=== PATIENT | female | born 1975 | race Caucasian/White ===

== ENCOUNTER 2016-09-20 14:31 | Emergency (ER) | payer OTHER, MEDICAID ==
[2016-09-20] MEDS ORDERED: NS 1,000 ML IV ONE (14:44)
[2016-09-20 14:53] VITALS: BP 127/78; PULSE 72; RESP 18; TEMP 97; O2SAT 97
--- NOTE | 2016-09-20 15:38 | UCPHY ---
H & P Time Seen by Provider: 09/20/16 15:13 Patient Type: Established HPI/ROS: 41-year-old female presents complaining of abdominal pain radiating to her left shoulder for 7 days she also states she has had a fever as high as 97. She states she has had GI problems for many many years. She does not currently have a regular primary care physician however she does state that she is scheduled to see a home manager tomorrow on September 21, 2016. She denies diarrhea she denies constipation No nausea or vomiting today She is concerned that her low temperature often ranging between 95-97 at home may be a sign of SIRS. She has no recent history of acute infections or signs of sepsis as far she knows. Review of systems As per HPI General no fever no chills no weakness HEENT no eye pain no eye discharge. No eye redness, no sore throat Respiratory no cough, no shortness of breath Cardiac no chest pain, no peripheral edema GI positive abdominal pain, no diarrhea, no constipation, no nausea, no vomiting no flank pain, no hematuria, no dysuria Musculoskeletal no myalgias, no joint pain Heme no easy bruising, no easy bleeding Endo no polyuria, no polydipsia Skin no rashes, no pruritus Neuro no syncope, no dizziness, no headaches Psych is no suicidal ideation, no homicidal ideation Past Medical/Surgical History: ? Irritable bowel syndrome Social History: Denies alcohol or drug use Smoking Status: Never smoked Physical Exam: 41-year-old female alert and oriented HEENT atraumatic normocephalic, extraocular muscles intact, anicteric Oropharynx negative for erythema negative exudate, tolerating her own secretions Neck supple no meningismus Lungs clear to auscultation bilaterally Heart regular rate and rhythm without murmur rub or gallop Abdomen nondistended normoactive bowel sounds soft nontender Back no CVA tenderness, no step-offs, no spinal tenderness Extremities no cyanosis clubbing or edema Neuro alert and oriented, no focal deficits Constitutional: Initial Vital Signs Temperature (C) 36.1 C 09/20/16 14:50 Heart Rate 72 09/20/16 14:50 Respiratory Rate 18 09/20/16 14:50 Blood Pressure 127/78 H 09/20/16 14:50 O2 Sat (%) 97 09/20/16 14:50 O2 Delivery Mode Room Air Allergies/Adverse Reactions: diphenhydramine HCl [From Benadryl] Allergy (Verified 10/15/15 08:16) latex [Latex] Allergy (Verified 10/15/15 08:16) promethazine HCl [From Phenergan] Allergy (Verified 10/15/15 08:16) iv contrast Allergy (Uncoded 10/15/15 08:16) Home Medications: Medication Instructions Recorded NK [No Known Home Meds] 08/22/15 Medical Decision Making ED Course/Re-evaluation: Patient seen and evaluated for abdominal pain radiating to her left shoulder of 1 weeks duration though she is currently pain free she feels this may be a result of having drank apple cider vinegar with an apple last night. Her physical exam is completely normal, she appears well. Labs CBC normal white blood cell count no evidence of anemia CMP liver function normal, renal function normal Lipase normal Erythrocyte sedimentation rate normal TSH normal Impression Abdominal pain unknown etiology Plan Follow-up with a primary care physician Keep her appointment with GI as scheduled for tomorrow September 21, 2016 - Data Points Laboratory Results: Laboratory Results 09/20/16 15:41 09/20/16 15:41 09/20/16 09/20/16 16:00 15:41 WBC 5.75 10^3/uL (3.80-9.50) RBC 4.03 L 10^6/uL (4.18-5.33) Hgb 13.0 g/dL (12.6-16.3) Hct 37.4 L % (38.0-47.0) MCV 92.8 fL (81.5-99.8) MCH 32.3 pg (27.9-34.1) MCHC 34.8 g/dL (32.4-36.7) RDW 11.9 % (11.5-15.2) Plt Count 216 10^3/uL (150-400) MPV 9.9 fL (8.7-11.7) Neut % (Auto) 67.9 % (39.3-74.2) Lymph % (Auto) 23.0 % (15.0-45.0) [place] % (Auto) 7.8 % (4.5-13.0) Eos % (Auto) 0.5 L % (0.6-7.6) Baso % (Auto) 0.5 % (0.3-1.7) Nucleat RBC Rel Count 0.0 % (0.0-0.2) Absolute Neuts (auto) 3.90 10^3/uL (1.70-6.50) Absolute Lymphs (auto) 1.32 10^3/uL (1.00-3.00) Absolute Monos (auto) 0.45 10^3/uL (0.30-0.80) Absolute Eos (auto) 0.03 10^3/uL (0.03-0.40) Absolute Basos (auto) 0.03 10^3/uL (0.02-0.10) Absolute Nucleated RBC 0.00 10^3/uL (0-0.01) Immature Gran % 0.3 % (0.0-1.1) Immature Gran # 0.02 10^3/uL (0.00-0.10) ESR 8 MM/HR (0-20) Sodium 135 mEq/L (134-144) Potassium 4.1 mEq/L (3.5-5.2) Chloride 105 mEq/L (97-110) Carbon Dioxide 23 mEq/l (22-31) Anion Gap 7 mEq/L (8-16) BUN 12 mg/dL (7-23) Creatinine 0.8 mg/dL (0.6-1.0) Estimated GFR > 60 Glucose 92 mg/dL (70-100) Calcium 9.0 mg/dL (8.5-10.4) Magnesium 1.9 mg/dL (1.6-2.3) Total Bilirubin 0.6 mg/dL (0.1-1.4) AST 21 IU/L (14-46) ALT 33 IU/L (9-52) Alkaline Phosphatase 51 IU/L (38-126) Total Protein 6.5 g/dL (6.3-8.2) Albumin 3.7 g/dL (3.5-5.0) Lipase 105.0 IU/L (23-300) TSH 3.770 uIU/mL (0.465-4.680) Urine Color YELLOW Urine Appearance CLEAR Urine pH 8.0 H (5.0-7.5) Ur Specific [place] 1.010 (1.002-1.030) Urine Protein NEGATIVE (NEGATIVE) Urine Ketones NEGATIVE (NEGATIVE) Urine Blood NEGATIVE (NEGATIVE) Urine Nitrate NEGATIVE (NEGATIVE) Urine Bilirubin NEGATIVE (NEGATIVE) Urine Urobilinogen 0.2 EU (0.2-1.0) Ur Leukocyte Esterase NEGATIVE (NEGATIVE) Ur Culture Indicated? NOT INDICATED (NI) Urine Glucose NEGATIVE (NEGATIVE) Medications Given: Discontinued Medications Sodium Chloride (Ns) 1,000 mls @ 0 mls/hr IV ONCE ONE PRN Reason: Wide Open Stop: 09/20/16 14:45 Last Admin: 09/20/16 15:48 Dose: Not Given Departure - Departure Disposition: Home, Routine, Self-Care Clinical Impression: Abdominal pain Condition: Good Instructions: Abdominal Pain (ED) Additional Instructions: KEEP YOUR APPOINTMENTS PLANNED Referrals: NONE *PRIMARY CARE P,. [Primary Care Provider] - As per Instructions [facility] [Provider Group] - As per Instructions - PQRS PQRS Measurement: NA
[2016-09-20 15:51] LABS: % IMMATURE GRANULYOCYTES 0.3 % (0.0-1.1); ABSOLUTE IMMATURE GRANULOCYTES 0.02 10^3/uL (0.00-0.10); ADD DIFF? NO; ADD MORPH? NO; ADD SCAN? NO; ATYPICAL LYMPHOCYTE FLAG 10 (0-99); FRAGMENT RBC FLAG 0 (0-99); HEMATOCRIT 37.4 % (38.0-47.0); LEFT SHIFT FLG 0 (0-99); LIPEMIA HEMOLYSIS FLAG 90 (0-99); MEAN CELL HEMOGLOBIN 32.3 pg (27.9-34.1); MEAN CELL HEMOGLOBIN CONCENTR. 34.8 g/dL (32.4-36.7); MEAN CELL VOLUME 92.8 fL (81.5-99.8); MEAN PLATELET VOLUME 9.9 fL (8.7-11.7); PLATELET CLUMPS FLAG 0 (0-99); PLATELET COUNT 216 10^3/uL (150-400); RED BLOOD CELL COUNT 4.03 10^6/uL (4.18-5.33); RED CELL DISTRIBUTION WIDTH 11.9 % (11.5-15.2)
[2016-09-20 16:09] LABS: ALANINE AMINOTRANSFERASE 33 IU/L (9-52); ALBUMIN 3.7 g/dL (3.5-5.0); ALKALINE PHOSPHATASE 51 IU/L (38-126); ANION GAP 7 mEq/L (8-16); ASPARTATE AMINOTRANSFERASE 21 IU/L (14-46); BILIRUBIN,TOTAL 0.6 mg/dL (0.1-1.4); CARBON DIOXIDE 23 mEq/l (22-31); CHLORIDE 105 mEq/L (97-110); CREATININE 0.8 mg/dL (0.6-1.0); GLOMERULAR FILTRATION RATE > 60; GLUCOSE 92 mg/dL (70-100); MAGNESIUM 1.9 mg/dL (1.6-2.3); POTASSIUM 4.1 mEq/L (3.5-5.2); SODIUM 135 mEq/L (134-144); TOTAL PROTEIN 6.5 g/dL (6.3-8.2)
[2016-09-20 16:09] LABS: COLOR YELLOW; LEUKOCYTE ESTERASE,URINE NEGATIVE (NEGATIVE); NITRITE,URINE NEGATIVE (NEGATIVE)
[2016-09-20 16:14] LABS: SEDIMENTATION RATE 8 MM/HR (0-20)
== END 2016-09-20 17:07 | disposition home or self-care (01) ==
LOC: CED 14:31
DX: R10.9 Unspecified abdominal pain (principal)
CPT/HCPCS: 80053-PO; 81003-PO; 83690-PO; 83735-PO; 84443-PO; 85025-PO; 85652-PO; 99214-PO; G0463-PO

== ENCOUNTER → 2016-10-04 | Outpatient (CLI) | payer OTHER, MEDICAID | LOC: CIMAGING 07:54 | PROVIDERS: ATTEND Physician Assistant | DX: R10.9 Unspecified abdominal pain (principal) | CPT/HCPCS: 76700-PO ==

== ENCOUNTER 2016-12-18 11:30 | Emergency (ER) | payer OTHER, MEDICAID ==
--- NOTE | 2016-12-18 11:34 | EDPHY ---
H & P HPI/ROS: CHIEF COMPLAINT: Abdominal pain. HISTORY OF PRESENT ILLNESS: The patient is a 41-year-old female who presents with epigastric pain that has been present for several days, but more noticeable yesterday. The pain is constant but worse after eating. Today after eating the pain became severe and radiated to her back. She became diaphoretic and had elevated blood pressure. The patient had a similar episode of pain a few years ago after taking Trileptal. She discontinued this medication. The patient was seen here 09/20/16 with similar complaints. At that time her lab work was normal. She followed up with a hot wort settler who found she had a normal stool study and recommended endoscopy. The patient feels too weak to have an endoscopy. She complains of diffuse myalgias and states "I think I have acute pancreatitis". She has been having soft stools that are dark green colored for 3 days. No changes in diet. She denies fever. No urinary complaints. She is scheduled to see her PCP later this week. REVIEW OF SYSTEMS: A ten point review of systems was performed and is negative with the exception of the items mentioned in the HPI. 2 weeks ago "blacked out" while sitting in the car. Source: Patient Exam Limitations: No limitations - Personal History Tetanus Vaccine Date: within 10 yrs - Medical/Surgical History Hx Asthma: No Hx Chronic Respiratory Disease: No Hx Diabetes: No Hx Cardiac Disease: No Hx Renal Disease: No Hx Cirrhosis: No Hx Alcoholism: No Hx HIV/AIDS: No Hx Splenectomy or Spleen Trauma: No Other PMH: Bipolar, right knee surgery, tonsilectomy, double uterus (one removed ), PFO heart. - Social History Smoking Status: Never smoked Alcohol Use: None Drug Use: None Additional Social History: No alcohol use. No drug use. Nonsmoker. - Physical Exam Exam: General Appearance: Alert. Vital signs reviewed and normal. Eyes: Pupils equal and round, no conjunctival injection, no discharge. Anicteric. ENT, Mouth: Mucous membranes are moist, no oropharyngeal erythema or edema. Tongue tremor with protrusion. Neck: No lymphadenopathy, supple. Respiratory: Lungs are clear to auscultation; no wheezes, rales, or rhonchi. Cardiovascular: Regular rate and rhythm; no murmur, rub, or gallop. Gastrointestinal: Abdomen is soft, mild epigastric tenderness, no guarding. Skin: Warm and dry, no rashes on exposed skin, normal color. Back: Nontender to palpation over the thoracolumbar spine. No CVAT. Extremities: No lower extremity edema, no calf tenderness or swelling. Neurological: Alert and oriented. Moving all four extremities easily and equally. Psychiatric: Normal affect. Constitutional: Initial Vital Signs Temperature (C) 36.5 C 12/18/16 11:33 Heart Rate 75 12/18/16 11:33 Respiratory Rate 16 12/18/16 11:33 Blood Pressure 120/72 12/18/16 11:33 O2 Sat (%) 98 12/18/16 11:33 O2 Delivery Mode Room Air Allergies/Adverse Reactions: diphenhydramine HCl [From Benadryl] Allergy (Verified 12/18/16 11:45) latex [Latex] Allergy (Verified 12/18/16 11:45) promethazine HCl [From Phenergan] Allergy (Verified 12/18/16 11:45) ALL DRUGS Allergy (Uncoded 12/18/16 11:45) iv contrast Allergy (Uncoded 12/18/16 11:45) Home Medications: Medication Instructions Recorded NK [No Known Home Meds] 08/22/15 Medical Decision Making - Diagnostics EKG Interpretation: The 12 lead EKG was interpreted by myself. See hard copy and/or "tracemaster" electronic copy for interpretation: Sinus rhythm, rate 67. ED Course/Re-evaluation: The patient is a 41-year-old female presenting with acute epigastric pain that has been present for a few days. This pain is worse with eating. It intermittently radiates to her back and chest. The patient was evaluated 09/20/16 for similar abdominal pain. Lab work was normal at that time. The patient saw her hot wort settler who suggested endoscopy. Patient is currently undergoing autoimmune testing and has completed other testing with a rug shampooer. Patient feels weak and complains of diffuse myalgias. Over the past 3 days she reports dark green colored stools. I performed a rectal exam, patient has no external hemorrhoids. Stool is green/brown colored. Hemoccult ordered. EKG done on arrival is normal, no acute ischemic changes. Plan to check lab work, including lipase, LFTs, CBC, and BMP. Labs with no concerning values. She refused IV placement, stating that she would not agree to receive any medications. She feels that medications that she was given in the past-- trileptal, seroquel, lithium, and others--have resulted in the symptoms that she has been experiencing. I discussed the negative lab work up with her at some length. I do not recommend further emergency department evaluation. I encouraged her to follow up with gastroenterology and to keep her appointment with her primary care provider. I do not find evidence of a surgical or life threatening abdominal process. Labs do not support diagnosis of pancreatitis or cholecystitis. I do not suspect appendicitis. No urinary symptoms. I feel that she can safely leave the department and return home. Differential Diagnosis: I considered a ddx that includes but is not limited to pancreatitis, gastritis, cholecystitis, appendicitis, pyelonephritis, UTI. - Data Points Laboratory Results: Laboratory Results 12/18/16 11:59 12/18/16 11:59 Departure - Departure Disposition: Home, Routine, Self-Care Clinical Impression: Abdominal pain Qualifiers: Abdominal location: epigastric Qualified Code(s): R10.13 - Epigastric pain Condition: Good Instructions: Acute Abdominal Pain (ED) Additional Instructions: Keep your appointment on . Continue to keep a journal of symptoms, activity, and diet. Do not give up in your search to find a cause. If you develop fever, vomiting, profuse diarrhea, intractable severe pain-- please be re-evaluated. Referrals: Félix Yang MD [Primary Care Provider] - As per Instructions Report Scribed for: Beverly Llamas Report Scribed by: Kathryn Sr Date of Report: 12/18/16 Time of Report: 11:40 Physician Review and Approval Statement: 12/18/16 11:34 Portions of this note were transcribed by the medical center manager. I, Dr. Beverly Llamas, personally performed the history, physical exam, and medical decision- making; and confirmed the accuracy of the information in the transcribed note.
--- NOTE | 2016-12-18 11:45 | CPEKG ---
Heart Rate: 67 RR Interval: 896 P-R Interval: 120 QRSD Interval: 72 QT Interval: 392 QTC Interval: 414 P [place]: 71 QRS [place]: 65 T Wave [place]: 53 EKG Severity - NORMAL ECG - EKG Impression: SINUS RHYTHM Electronically Signed By: Beverly Llamas 18-Dec-2016 15:42:03
[2016-12-18 12:29] LABS: % IMMATURE GRANULYOCYTES 0.4 % (0.0-1.1); ABSOLUTE IMMATURE GRANULOCYTES 0.02 10^3/uL (0.00-0.10); ADD DIFF? NO; ADD MORPH? NO; ADD SCAN? NO; ATYPICAL LYMPHOCYTE FLAG 30 (0-99); FRAGMENT RBC FLAG 0 (0-99); HEMATOCRIT 35.7 % (38.0-47.0); HEMOGLOBIN 12.6 g/dL (12.6-16.3); LEFT SHIFT FLG 0 (0-99); LIPEMIA HEMOLYSIS FLAG 90 (0-99); MEAN CELL HEMOGLOBIN 31.9 pg (27.9-34.1); MEAN CELL HEMOGLOBIN CONCENTR. 35.3 g/dL (32.4-36.7); MEAN CELL VOLUME 90.4 fL (81.5-99.8); PLATELET CLUMPS FLAG 10 (0-99); PLATELET COUNT 233 10^3/uL (150-400); RED BLOOD CELL COUNT 3.95 10^6/uL (4.18-5.33); RED CELL DISTRIBUTION WIDTH 11.9 % (11.5-15.2)
[2016-12-18 12:40] LABS: ALANINE AMINOTRANSFERASE 35 IU/L (9-52); ALBUMIN 4.1 g/dL (3.5-5.0); ALKALINE PHOSPHATASE 51 IU/L (38-126); ANION GAP 13 mEq/L (8-16); ASPARTATE AMINOTRANSFERASE 19 IU/L (14-46); BILIRUBIN,TOTAL 0.5 mg/dL (0.1-1.4); BILIRUBIN-CONJUGATED 0.1 mg/dL (0.0-0.5); BILIRUBIN-UNCONJUGATED 0.4 mg/dL (0.0-1.1); CALCIUM 9.1 mg/dL (8.5-10.4); CARBON DIOXIDE 20 mEq/l (22-31); CHLORIDE 101 mEq/L (97-110); CREATININE 0.8 mg/dL (0.6-1.0); GLOMERULAR FILTRATION RATE > 60; GLUCOSE 85 mg/dL (70-100); POTASSIUM 4.3 mEq/L (3.5-5.2); SODIUM 134 mEq/L (134-144); TOTAL PROTEIN 6.8 g/dL (6.3-8.2)
[2016-12-18 13:26] VITALS: BP 111/78; PULSE 59; RESP 16; TEMP 97.9; O2SAT 63
== END 2016-12-18 13:20 | disposition home or self-care (01) ==
LOC: CED 11:30
DX: R10.13 Epigastric pain (principal)
CPT/HCPCS: 80048-PO; 80076-PO; 82270-PO; 83690-PO; 84703-PO; 85025-PO

== ENCOUNTER → 2018-02-22 | Outpatient (CLI) | payer OTHER, MEDICAID | LOC: SUPIMAGING 18:01 | PROVIDERS: ATTEND Nurse Practitioner Family | DX: M25.572 Pain in left ankle and joints of left foot (principal) | CPT/HCPCS: 73610-PN ==